=== PATIENT | male | born 1955 | race Caucasian/White ===

== ENCOUNTER → 2018-02-11 | Day surgery (SDC) | payer OTHER ==
[~2018-02-11] MED LIST: ESOM40CA PO; IV RINGERS,LACTATED 1000ML 1,000 ML IV SCH; PROPOFOL 40 ML IV ONE; RANI50VI5 IJ; TAMS0.4C97 PO
[2018-02-11 08:55] VITALS: BP 128/72
--- NOTE | 2018-02-14 15:09 | PATHOLOGY ---
[facility] Accession Number: [id number] . 01 Material submitted: . DISTAL ESOPHAGEAL BIOPSY . 01 Clinical history: . 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 P/02/14/2018 . 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 There is no dysplasia or evidence of malignancy. (JPM:[facility] 02/14/2018) . 02 Electronically signed: . Tc Arrington MD, Pathologist NPI- [id number] . 01 Gross description: . Received in formalin labeled "Ross, Jan, distal esophagus," are 4 segments of swanson soft tissue measuring 0.9 x 0.8 x 0.2 cm in aggregate dimensions and ranging from 0.3 to 0.4 cm in maximum dimension. The specimen is submitted entirely in cassette A1. (TSD; 02/11/2018) TOB/TOB . 02 Pathologist provided ICD-10: K20.9, K22.70 . 02 CPT . 915586 Specimen Comment: A courtesy copy of this report has been sent to Specimen Comment: [phone], . Specimen Comment: Report sent to / DR RENE Specimen Comment: A duplicate report has been generated due to demographic updates. Performed at: [address], [place], [place] [id number] MD Iam Dan MD Phone: [phone] Performed at: [address] [id number] MD Tc Arrington MD Phone: [phone]
== END | disposition home or self-care (01) ==
LOC: SURG 06:43
PROVIDERS: ATTEND Internal Medicine Gastroenterology
DX: Z12.11 Encounter for screening for malignant neoplasm of colon (principal); K57.30 Diverticulosis of large intestine without perforation or abscess without bleeding; K64.0 First degree hemorrhoids; K29.50 Unspecified chronic gastritis without bleeding; K22.70 Barrett's esophagus without dysplasia; K21.0 Gastro-esophageal reflux disease with esophagitis; Z85.828 Personal history of other malignant neoplasm of skin; Z90.49 Acquired absence of other specified parts of digestive tract; Z98.890 Other specified postprocedural states
CPT/HCPCS: 43239; 45378; 88305; J2704